=== PATIENT | male | born 1955 | race Caucasian/White ===

== ENCOUNTER → 2016-09-20 | Outpatient (CLI) | payer OTHER ==
[~2016-09-20] MED LIST: ALLO100T PO; CHOL1000 PO; CIPR1TAB10 PO; CYAN500T PO; GLIM2TAB2 PO; LSN25 PO; METF-383 PO; METO25TA56 PO; OMEG10007 PO; OXYC-57 PO; OXYC7.5T65 PO; RANI300T2 PO; SIMV80TA2 PO; TAMS0.4C38 PO
--- NOTE | 2016-09-20 17:46 | DIAGNOSTIC IMAGING REPORT ---
[facility] CLINICAL HISTORY: Nephrolithiasis. COMPARISON STUDY: 09/10/2016 FINDINGS: There is a left-sided nephroureteral stent in place. There is a faint intrarenal calculus on the left adjacent to the proximal pigtail. There is proximal left ureteral Steinstrasse with multiple calculi extending over a length of 19 mm. There is no pathologic bowel dilatation. IMPRESSION: 1. Proximal left ureteral Steinstrasse similar to the prior study 2. Left-sided nephrolithiasis 3. Left-sided nephroureteral stent. Electronically signed by: Brandt Izquierdo M.D. 09/20/2016 5:44 PM Dictated Date/Time: 09/20/2016 5:43 PM
== END | disposition home or self-care (01) ==
LOC: C.RAD 16:48
PROVIDERS: ATTEND Urology
DX: N20.0 Calculus of kidney (principal)

== ENCOUNTER → 2016-09-21 | Day surgery (SDC) | payer OTHER ==
[2016-09-19 15:37] VITALS: Ht 172.7 cm; Wt 93.2 kg
[~2016-09-21] VITALS: Ht 172.7 cm; Wt 93.2 kg
[~2016-09-21] MED LIST changes: +ATROPINE SULFATE 0.1 MG/ML 5ML SYR IV PRN; +CIPROFLOXACIN 400MG / D5W IV SCH; +DEXAMETHASONE SOD INJ 4 MG/ML VIAL ONE; +EpHEDrine SULFATE INJ 50 MG/ML AMP IV PRN; +FENTANYL CITRATE INJ 50 MCG/1 ML 2 ML VIAL IV PRN; +FENTANYL CITRATE INJ 50 MCG/1 ML 2 ML VIAL ONE; +LACTATED RINGER'S 1000ML 1,000 ML IV SCH; +MIDAZOLAM HCL 1 MG/ML 2ML VIAL ONE; +ONDANSETRON INJ 2 MG/ML 2 ML VIAL IV PRN; +ONDANSETRON INJ 2 MG/ML 2 ML VIAL ONE; +PROPOFOL IV EMULSION 10 MG/ML 20 ML VIAL IV ONE
--- NOTE | 2016-09-21 09:21 | History & Physical Bridge - SC ---
H&P Re-Evaluation Bridge Note: I have examined the patient, reviewed the History & Physical and in the interval since the performance of the History & Physical I have noted the following changes of clinical significance: No changes noted
--- NOTE | 2016-09-21 10:15 | Discharge Instructions-SurgCtr ---
Discharge Instructions Visit Reason for Visit: Stones Discharge Goals Goal(s): Decrease discomfort, Improve disease control Medications Stopped Medications Name(s): METFORMIN HELD SINCE 4TH. ASA HELD FOR ONE MONTH. Activity Recommendations Activity Limitations: as noted below (no driving on narcotics) Anesthesia . Post Anesthesia Instructions: If you have had General Anesthesia or IV Sedation: * Do not drive today. * Resume driving when surgeon permits. * Do not make important decisions or sign legal documents today. * Call surgeon for: 1. Temperature elevations greater than 101 degrees F. 2. Uncontrollable pain. 3. Excessive bleeding. 4. Persistent nausea and vomiting. 5. Medication intolerance (nausea, vomiting or rash). * For nausea and vomiting use only clear liquids such as: tea, soda, bouillon until nausea subsides, then gradually increase diet as tolerated. * If you have any concerns or questions, call your surgeon's office. If physician is unavailable and it is an emergency, call 911 or go to the nearest emergency room. . Diet Recommendations Home Diet: resume previous diet Procedures Procedures Performed: Left Extracorporeal Shock Wave Lithotripsy, Repeat--Ureteral Pending Studies Studies pending at discharge: no Medical Emergencies . Who to Call and When: Medical Emergencies: If at any time you feel your situation is an emergency, please call 911 immediately. . Non-Emergent Contact . . "Provider Documentation" section prepared by Ken Benavidez.
--- NOTE | 2016-09-21 10:16 | [facility] Post Operative Brief Note ---
Immediate Operative Summary Operative Date Sep 21, 2016. Pre-Operative Diagnosis Left ureteral stone Post-Operative Diagnosis same Procedure(s) Performed Left Extracorporeal Shock Wave Lithotripsy, Repeat--Ureteral Surgeon Dr Benavidez Ict Help Desk Technician Surgeon(s) 0 Estimated Blood Loss 0 Findings stones along l stent Specimens 0
--- NOTE | 2016-09-21 10:58 | Anesthesia Progress Nt - [facility] ---
Anesthesia Post Op Note Date & Time Sep 21, 2016 at 10:57 Vital Signs Pain Intensity: 0 Vital Signs Past 12 Hours Date Time Temp Pulse Resp B/P Pulse Ox O2 Delivery O2 Flow Rate FiO2 09/21/16 10:26 36.8 66 12 108/75 98 Diffusion Mask 09/21/16 07:46 36.9 83 18 123/81 94 Room Air Notes Mental Status: alert / awake / arousable, participated in evaluation Pt Amnestic to Procedure: Yes Nausea / Vomiting: adequately controlled Pain: adequately controlled Airway Patency, RR, SpO2: stable & adequate BP & HR: stable & adequate Hydration State: stable & adequate Anesthetic Complications: no major complications apparent
[2016-09-21 11:10] VITALS: TEMP 36.4
[2016-09-21 11:28] VITALS: BP 134/85; PULSE 69; O2SAT 96
--- NOTE | 2016-09-21 12:57 | OPERATIVE REPORT ---
DATE OF OPERATION: 09/21/2016 PROCEDURE PERFORMED: Right ureteral ESWL. PREOPERATIVE DIAGNOSIS: History of residual stone fragments. HISTORY OF PRESENTATION: The patient is a 61-year-old male with a previous ESWL who had on the left side persistent left-sided fragments around the stent in the proximal ureter who presents for ESWL of the fragments prior to removal of stent. DESCRIPTION OF THE PROCEDURE: The patient was given preoperative antibiotics. He was taken to the OR after antibiotics were given, given general anesthesia, placed in the supine position. The stone was placed in focus and he received 3000 shocks up to level 5. At the end of the procedure, the patient was transferred to the recovery room in stable condition. Please refer to the [facility] description sheet of the procedure. I attest to the content of the Intraoperative Record and any orders documented therein. Any exceptio ns are noted below.
== END | disposition home or self-care (01) ==
LOC: X.SURG 07:37
PROVIDERS: ATTEND Urology
DX: N20.0 Calculus of kidney (principal); E11.9 Type 2 diabetes mellitus without complications; I25.10 Atherosclerotic heart disease of native coronary artery without angina pectoris; G47.33 Obstructive sleep apnea (adult) (pediatric); Z68.32 Body mass index [BMI] 32.0-32.9, adult; E66.9 Obesity, unspecified; Z98.52 Vasectomy status; Z86.39 Personal history of other endocrine, nutritional and metabolic disease; Z86.79 Personal history of other diseases of the circulatory system; Z80.2 Family history of malignant neoplasm of other respiratory and intrathoracic organs; Z83.3 Family history of diabetes mellitus; Z82.49 Family history of ischemic heart disease and other diseases of the circulatory system; Z80.1 Family history of malignant neoplasm of trachea, bronchus and lung; Z80.42 Family history of malignant neoplasm of prostate

== ENCOUNTER → 2016-10-02 | Outpatient (CLI) | payer OTHER ==
[~2016-10-02] MED LIST changes: -ATROPINE SULFATE 0.1 MG/ML 5ML SYR IV PRN; -CIPROFLOXACIN 400MG / D5W IV SCH; -DEXAMETHASONE SOD INJ 4 MG/ML VIAL ONE; -EpHEDrine SULFATE INJ 50 MG/ML AMP IV PRN; -FENTANYL CITRATE INJ 50 MCG/1 ML 2 ML VIAL IV PRN; -FENTANYL CITRATE INJ 50 MCG/1 ML 2 ML VIAL ONE; -LACTATED RINGER'S 1000ML 1,000 ML IV SCH; -MIDAZOLAM HCL 1 MG/ML 2ML VIAL ONE; -ONDANSETRON INJ 2 MG/ML 2 ML VIAL IV PRN; -ONDANSETRON INJ 2 MG/ML 2 ML VIAL ONE; -PROPOFOL IV EMULSION 10 MG/ML 20 ML VIAL IV ONE
== END | disposition home or self-care (01) ==
LOC: C.LABSPEC 17:11
PROVIDERS: ATTEND Urology
DX: N20.0 Calculus of kidney (principal); N39.0 Urinary tract infection, site not specified

== ENCOUNTER → 2016-12-20 | Outpatient (CLI) | payer OTHER ==
[2016-12-20 10:26] LABS: BLOOD UREA NITROGEN 20 mg/dl (7-18); BUN/CREATININE RATIO 17.7 (10-20)
== END | disposition home or self-care (01) ==
LOC: C.LAB 09:22
PROVIDERS: ATTEND Urology
DX: N13.30 Unspecified hydronephrosis (principal)

== ENCOUNTER → 2016-12-31 | Outpatient (CLI) | payer OTHER ==
[~2016-12-31] MED LIST changes: +OPTIRAY 300 IV PRN
--- NOTE | 2016-12-31 15:06 | DIAGNOSTIC IMAGING REPORT ---
IVP W/OR W/O TOMOGRAMS CLINICAL HISTORY: N13.30 [id number] Calculus of kidney hydronephrosis. Nephrocalcinosis. COMPARISON STUDY: 10/01/2016 FINDINGS: Interval removal of the left ureteral stent. Renal and psoas shadows are unremarkable. Heart size performed following the intravenous injection of 1 cc nonionic contrast. There is prompt opacification of both upper urinary tracts. Tomographic sections are negative for mass or hydronephrosis. Several faint calcifications potentially are present in the mid pole regions bilaterally. Ureters normal in course and caliber. There are no obstructive changes. There is minimal bladder wall trabeculation. There is no significant post void residual. IMPRESSION: Several faint nonobstructing renal calcifications. 2. No evidence for an obstructing urinary tract calculus. 3. Slight bladder wall trabeculation 4. No significant post void residual. Electronically signed by: Juan Miguel Levine M.D. 12/31/2016 3:03 PM Dictated Date/Time: 12/31/2016 2:56 PM
== END | disposition home or self-care (01) ==
LOC: C.RAD 12:37
PROVIDERS: ATTEND Urology
DX: N13.2 Hydronephrosis with renal and ureteral calculous obstruction (principal)

== ENCOUNTER → 2017-01-02 | Outpatient (CLI) | payer OTHER ==
[~2017-01-02] MED LIST changes: -OPTIRAY 300 IV PRN
[2017-01-02 12:25] LABS: BASO % 0.9 %; BASO ABS # 0.05 K/uL (0-0.2); COMPLETE YES; EOS % 6.7 %; HEMATOCRIT 42.3 % (42-52); IG% 0.2 %; LYMPH % 41.9 %; LYMPH ABS # 2.45 K/uL (1.2-3.4); MEAN CELL VOLUME 89.8 fL (80-100); MEAN CORPUSCULAR HEMOGLOBIN 28.9 pg (25-34); MEAN CORPUSCULAR HGB CONC 32.2 g/dl (32-36); MEAN PLATELET VOLUME 10.9 fL (7.4-10.4); MONO % 9.2 %; NEUT % 41.1 %; PLATELET COUNT 219 K/uL (130-400); RED BLOOD COUNT 4.71 M/uL (4.7-6.1); WHITE BLOOD COUNT 5.85 K/uL (4.8-10.8)
[2017-01-02 12:41] LABS: BLOOD UREA NITROGEN 14 mg/dl (7-18); BUN/CREATININE RATIO 14.3 (10-20); CREATININE 0.96 mg/dl (0.60-1.40)
[2017-01-02 12:49] LABS: BLOOD UREA NITROGEN 13 mg/dl (7-18); BUN/CREATININE RATIO 13.1 (10-20); CALCIUM 9.1 mg/dl (8.5-10.1); CARBON DIOXIDE 26 mmol/L (21-32); CHLORIDE 107 mmol/L (98-107); GLUCOSE 102 mg/dl (70-99); POTASSIUM 4.3 mmol/L (3.5-5.1); SODIUM 140 mmol/L (136-145)
== END | disposition home or self-care (01) ==
LOC: C.LAB 10:42
PROVIDERS: ATTEND Urology
DX: N13.30 Unspecified hydronephrosis (principal); N20.0 Calculus of kidney; N39.0 Urinary tract infection, site not specified

== ENCOUNTER → 2017-12-30 | Outpatient (CLI) | payer OTHER ==
[~2017-12-30] MED LIST changes: -OXYC-57 PO
--- NOTE | 2017-12-30 12:50 | DIAGNOSTIC IMAGING REPORT ---
KUB CLINICAL HISTORY: N39.0 UTI (urinary tract infection COMPARISON STUDY: 12/31/2016 FINDINGS: There is scattered stool present within the colon. Left upper quadrant small bowel loops are at the upper limits of normal in diameter. There are no transition zones to indicate a high-grade bowel obstruction. Pelvic basin calcifications likely represent phleboliths. A dense 3 mm left upper quadrant opacity, is not felt to be related to the urinary tract. IMPRESSION: 1. No urinary tract calculi identified on conventional radiographic imaging Electronically signed by: Brandt Izquierdo M.D. 12/30/2017 12:49 PM Dictated Date/Time: 12/30/2017 12:45 PM
== END | disposition home or self-care (01) ==
LOC: C.RAD 12:13
PROVIDERS: ATTEND Urology
DX: N39.0 Urinary tract infection, site not specified (principal)